=== PATIENT | female | born 1990 ===

== ENCOUNTER 2017-09-27 18:16 | Emergency (ER) | payer MEDICAID ==
[2017-09-27 18:28] VITALS: O2SAT 100; BMI 22.3
[2017-09-27 20:57] LABS: PH,URINE 7.5 (4.7-8.0); URINE APPEARANCE SL CLOUDY (CLEAR); URINE BILIRUBIN NEGATIVE (NEGATIVE); URINE BLOOD TRACE-INTACT (NEGATIVE); URINE COLOR YELLOW (YELLOW); URINE GLUCOSE (UA) NEGATIVE (NEGATIVE); URINE LEUKOCYTE ESTERASE SMALL Leu/uL (NEGATIVE); URINE NITRATE NEGATIVE (NEGATIVE); URINE PROTEIN 30 mg/dL (<30 mg/dL); URINE UROBILINOGEN 0.2 E.U./dL (<1 E.U./dL)
--- NOTE | 2017-09-27 20:58 | ED PDOC ---
Arrival/HPI - General Chief Complaint: Back Pain Time Seen by Provider: 09/27/17 20:12 Historian: Patient - History of Present Illness Narrative History of Present Illness (Text): 09/27/17 20:58 A 27 year old female, who denies any past medical history, presents to the emergency department complaining of a rash to right flank since yesterday. Patient notes mild discomfort with radiating pain to right anterior abdominal area. Patient denies any fever, chills, nausea, vomiting, diarrhea, abdominal pain, urinary symptoms, chest pain, shortness of breath or any other complaints. PMD: Dr. Timmons Time/Duration: Other (yesterday) Symptom Course: Unchanged Quality: Other Context: Home Past Medical History - Provider Review Nursing Documentation Reviewed: Yes - Infectious Disease Hx of Infectious Diseases: None - Cardiac Hx Cardiac Disorders: No - Pulmonary Hx Respiratory Disorders: No - Neurological Hx Neurological Disorder: No - HEENT Hx HEENT Disorder: No - Renal Hx Renal Disorder: No - Endocrine/Metabolic Hx Endocrine Disorders: No - Hematological/Oncological Hx Blood Disorders: No - Integumentary Hx Dermatological Disorder: No - Musculoskeletal/Rheumatological Hx Musculoskeletal Disorders: No - Gastrointestinal Hx Gastrointestinal Disorders: No - Genitourinary/Gynecological Hx Genitourinary Disorders: No - Psychiatric Hx Psychophysiologic Disorder: No Hx Substance Use: Yes - Anesthesia Hx Anesthesia: No Hx Anesthesia Reactions: No Hx Malignant Hyperthermia: No Family/Social History - Physician Review Nursing Documentation Reviewed: Yes Family/Social History: No Known Family HX Smoking Status: Never Smoked Hx Alcohol Use: No Hx Substance Use: Yes Substance used: marijuana Allergies/Home Meds Allergies/Adverse Reactions: Allergies Penicillins Allergy (Verified 09/27/17 20:13) URTICARIA Review of Systems - Physician Review All systems were reviewed & negative as marked: Yes - Review of Systems Constitutional: absent: Fevers, Night Sweats Respiratory: absent: SOB Cardiovascular: absent: Chest Pain Gastrointestinal: absent: Abdominal Pain, Diarrhea, Nausea, Vomiting Genitourinary Female: absent: Dysuria, Frequency, Hematuria Skin: Rash (to right flank with pain to area radiating to abdomen) Physical Exam Vital Signs Reviewed: Yes Vital Signs Temp Pulse Resp BP Pulse Ox 09/27/17 22:39 98.7 F 73 16 127/86 100 09/27/17 22:16 97.8 F 76 16 127/83 100 09/27/17 20:16 97.9 F 76 16 124/69 100 09/27/17 18:26 97.8 F 95 H 18 120/88 100 Temperature: Afebrile Blood Pressure: Normal Pulse: Tachycardic Respiratory Rate: Normal Appearance: Positive for: Well-Appearing, Non-Toxic, Comfortable Pain Distress: None Mental Status: Positive for: Alert and Oriented X 3 - Systems Exam Head: Present: Atraumatic, Normocephalic Pupils: Present: PERRL Extroacular Muscles: Present: EOMI Conjunctiva: Present: Normal Mouth: Present: Moist Mucous Membranes Neck: Present: Normal Range of Motion Respiratory/Chest: Present: Clear to Auscultation, Good Air Exchange. No: Respiratory Distress, Accessory Muscle Use Cardiovascular: Present: Regular Rate and Rhythm, Normal S1, S2. No: Murmurs Abdomen: Present: Normal Bowel Sounds. No: Tenderness, Distention, Peritoneal Signs Back: Present: Normal Inspection Upper Extremity: Present: Normal Inspection. No: Cyanosis, Edema Lower Extremity: Present: Normal Inspection. No: Edema Neurological: Present: GCS=15, CN II-XII Intact, Speech Normal Skin: Present: Warm, Dry, Rashes (raised erythematous/scant vesicular rash to right posterior thoracic flank area), Normal Color Psychiatric: Present: Alert, Oriented x 3, Normal Insight, Normal Concentration Medical Decision Making ED Course and Treatment: 09/27/17 20:58 Impression: A 27 year old female with a rash to right flank area. Plan: -- Urine culture and Urinalysis -- Reassess and disposition Progress Notes: 09/27/17 22:18 I have discussed the results and plan with the patient, who expresses understanding. Patient in agreement with the plan to be discharged home. Patient is stable for discharge. Patient was instructed to follow up with physician or return if symptoms persist/worsen or new concerning symptoms arise. - Lab Interpretations Lab Results: Lab Results 09/27/17 20:37: Urine Color Yellow, Urine Appearance Sl cloudy, Urine pH 7.5, Ur Specific Todd 1.025, Urine Protein 30 H, Urine Glucose (UA) Negative, Urine Ketones 15 H, Urine Blood Trace-intact H, Urine Nitrate Negative, Urine Bilirubin Negative, Urine Urobilinogen 0.2, Ur Leukocyte Esterase Small H, Urine RBC 1 - 3, Urine WBC 2 - 5, Ur Epithelial Cells Tntc, Urine Bacteria Large , Urine HCG, Qual Negative - Medication Orders Current Medication Orders: Discontinued Medications Ibuprofen (Motrin Tab) 600 mg PO STAT STA Stop: 09/27/17 22:21 Last Admin: 09/27/17 22:38 Dose: 600 mg MAR Pain/Vitals Document 09/27/17 22:38 AB (Rec: 09/27/17 22:38 AB [id number]) Pain Reassessment Is This A Pain ReAssessment? Yes Presence of Pain Presence of Pain Yes Pain Scale Used Pain Scale Used Numeric Location Pain Location Body Site Back Description Constant Intensity 3 Scale Used Numeric Pain Behavior Guarding Aggravating Factors ADL's Alleviating Factors Medication - Scribe Statement The provider has reviewed the documentation as recorded by the Scribmaral Colon Provider Scribe Attestation: All medical record entries made by the Scribe were at my direction and personally dictated by me. I have reviewed the chart and agree that the record accurately reflects my personal performance of the history, physical exam, medical decision making, and the department course for this patient. I have also personally directed, reviewed, and agree with the discharge instructions and disposition. Disposition/Present on Arrival - Present on Arrival Any Indicators Present on Arrival: No History of DVT/PE: No History of Uncontrolled Diabetes: No Urinary Catheter: No History of Decub. Ulcer: No History Surgical Site Infection Following: None - Disposition Have Diagnosis and Disposition been Completed?: Yes Diagnosis: Herpes zoster Disposition: HOME/ ROUTINE Disposition Time: 22:18 Patient Plan: Discharge Condition: GOOD Discharge Instructions (ExitCare): Shingles (ED) Additional Instructions: Take meds as prescribed/follow up with your doctor this week Prescriptions: Ibuprofen [Motrin] 400 mg PO Q6 PRN #21 tab PRN Reason: Pain, Moderate (4-7) Valacyclovir HCl [Valtrex] 1 gm PO TID #21 tablet Referrals: Rizwan Timmons MD [Primary Care Provider] - Follow up with primary Forms: [email or web address] ([place])
[2017-09-27 21:06] LABS: URINE BACTERIA LARGE (NEG); URINE EPITHELIAL CELLS TNTC /hpf (0-5)
[2017-09-27 21:09] LABS: HCG,QUALITATIVE URINE NEGATIVE (NEGATIVE)
[2017-09-27 22:27] VITALS: RESP 16
[2017-09-27 22:41] VITALS: BP 127/86; PULSE 73; TEMP 98.7
== END 2017-09-27 22:39 | disposition home or self-care (01) ==
LOC: ED 18:16 → MERGE 18:16 → ED 22:39
DX: B02.9 Zoster without complications (principal)